=== PATIENT | female | born 1990 | race Two or more races ===

== ENCOUNTER 2017-10-14 11:40 | Outpatient (CLI) | payer OTHER | END 2017-10-14 15:58 | disposition home or self-care (01) | LOC: SONOGRAMA 11:40 | DX: N92.5 Other specified irregular menstruation (principal) ==

== ENCOUNTER → 2018-03-18 | Day surgery (SDC) | payer OTHER ==
[~2018-03-18] MED LIST: AMOX1TAB5 PO; CODE1TAB37 PO
== END | disposition home or self-care (01) ==
LOC: ADM 03-16 14:45 → CIR.AMB 08:41
DX: D25.0 Submucous leiomyoma of uterus (principal); N84.0 Polyp of corpus uteri